=== PATIENT | female | born 1980 | race Hispanic/Latino ===

== ENCOUNTER → 2024-03-23 10:55 | Outpatient (REF) | payer OTHER, SELFPAY ==
[2024-03-23 11:25] LABS: % Basophils 0.6 % (0-2); % Eosinophils 1.8 % (0-6); % Immature Granulocytes 0.6 % (0-0.5); % Lymphocytes 29.9 % (20.5-51.1); % Monocytes 11.8 % (1.7-9.3); % Neutrophils 55.3 % (42.2-75.2); Absolute Eosinophils 0.1 10^3/uL (0-0.7); Absolute Lymphocytes 1.5 10^3/uL (1.2-3.4); Absolute Monocytes 0.6 10^3/uL (0.1-0.6); Absolute Neutrophils 2.7 10^3/uL (1.4-6.5); Hematocrit 36.6 % (37.0-47.0); Hemoglobin 11.9 g/dL (12.0-16.0); Mean Corp Hgb Conc. 32.5 g/dL (33.0-37.0); Mean Corpuscular Hgb 26.9 pg (27.0-31.0); Mean Corpuscular Volume 82.6 fL (81.0-99.0); Mean Platelet Volume 9.6 fL (7.4-10.4); Nucleated Red Blood Cells % 0 %; Platelet Count 354 10^3/uL (130-400); Red Blood Cell Count 4.43 10^6/uL (4.20-5.40); Red Cell Dist. Width 13.8 % (11.5-14.5); White Blood Cell Count 4.9 10^3/uL (4.8-10.8)
[2024-03-23 11:37] LABS: Erythrocyte Sed Rate 14 mm/hour (0-20)
[2024-03-23 12:04] LABS: ALT (SGPT) 18 U/L (0-35); AST (SGOT) 22 U/L (14-36); Albumin 4.4 g/dl (3.5-5.0); Alkaline Phosphatase 81 U/L (38-126); Blood Urea Nitrogen 11 mg/dl (7-17); Calcium 9.5 mg/dl (8.4-10.2); Carbon Dioxide 27 mmol/L (22-30); Chloride 104 mmol/L (98-107); Glucose 100 mg/dl (70-99); Potassium 4.5 mmol/L (3.5-5.1); Sodium 140 mmol/L (135-145); Total Bilirubin 0.4 mg/dl (0.2-1.3); eGFR > 60.00
== END ==
LOC: REG 10:55
PROVIDERS: ATTENDING PHYSICIAN Internal Medicine
DX: N93.8 Other specified abnormal uterine and vaginal bleeding (principal)
CPT/HCPCS: 36415; 80048; 80076; 85025; 85652

== ENCOUNTER → 2024-06-19 11:27 | Outpatient (REF) | payer OTHER, SELFPAY ==
[2024-06-19 12:16] LABS: % Basophils 0.6 % (0-2); % Immature Granulocytes 0.2 % (0-0.5); % Lymphocytes 35.4 % (20.5-51.1); % Monocytes 7.8 % (1.7-9.3); Absolute Eosinophils 0.1 10^3/uL (0-0.7); Absolute Lymphocytes 1.8 10^3/uL (1.2-3.4); Absolute Monocytes 0.4 10^3/uL (0.1-0.6); Absolute Neutrophils 2.8 10^3/uL (1.4-6.5); Hematocrit 37.7 % (37.0-47.0); Hemoglobin 12.2 g/dL (12.0-16.0); Mean Corp Hgb Conc. 32.4 g/dL (33.0-37.0); Mean Corpuscular Hgb 27.1 pg (27.0-31.0); Mean Corpuscular Volume 83.6 fL (81.0-99.0); Mean Platelet Volume 9.8 fL (7.4-10.4); Nucleated Red Blood Cells % 0 %; Platelet Count 348 10^3/uL (130-400); Red Blood Cell Count 4.51 10^6/uL (4.20-5.40); Red Cell Dist. Width 13.8 % (11.5-14.5)
[2024-06-19 12:35] LABS: Erythrocyte Sed Rate 12 mm/hour (0-20)
[2024-06-19 13:25] LABS: ALT (SGPT) 15 U/L (0-35); AST (SGOT) 19 U/L (14-36); Albumin 4.4 g/dl (3.5-5.0); Alkaline Phosphatase 67 U/L (38-126); Blood Urea Nitrogen 18 mg/dl (7-17); Calcium 9.1 mg/dl (8.4-10.2); Carbon Dioxide 22 mmol/L (22-30); Chloride 105 mmol/L (98-107); Glucose 95 mg/dl (70-99); Potassium 4.6 mmol/L (3.5-5.1); Sodium 137 mmol/L (135-145); Total Bilirubin 0.5 mg/dl (0.2-1.3); Total Protein 7.2 g/dl (6.3-8.2); eGFR > 60.00
== END ==
LOC: RAD 11:27
PROVIDERS: ATTENDING PHYSICIAN Internal Medicine; FAMILY PHYSICIAN Nurse Practitioner Adult Health
DX: N93.8 Other specified abnormal uterine and vaginal bleeding (principal)
CPT/HCPCS: 36415; 76830; 76856; 80053; 82248; 85025; 85652

== ENCOUNTER → 2024-06-21 10:50 | Outpatient (REF) | payer OTHER, SELFPAY | LOC: CLINIC 10:50 | PROVIDERS: ATTENDING PHYSICIAN Obstetrics & Gynecology Gynecology | DX: N93.9 Abnormal uterine and vaginal bleeding, unspecified (principal) | CPT/HCPCS: 88305 ==

== ENCOUNTER 2024-08-25 05:58 | Day surgery (SDC) | payer OTHER, SELFPAY ==
[2024-08-25] VITALS (7 sets, daily range): BP systolic 110–127; BP diastolic 69–86; BMI 31.9
[2024-08-25] MEDS: NORMOSOL-R/PLASMALYTE-A 1000 IV (06:40)
[2024-08-25 06:59] LABS: HCG, Urine Qualitative Screen Negative
[2024-08-25] MEDS: ROXICODONE 5 MG PO (10:03)
== END 2024-08-25 10:24 | disposition home or self-care (01) ==
LOC: SDS 05:58
PROVIDERS: ATTENDING PHYSICIAN Obstetrics & Gynecology Gynecology
DX: D25.0 Submucous leiomyoma of uterus (principal); N93.9 Abnormal uterine and vaginal bleeding, unspecified
CPT/HCPCS: 58545; 58558; 88305; 81025